=== PATIENT | female | born 1985 | race Two or more races ===

== ENCOUNTER 2025-04-25 04:17 | Emergency (ER) | payer OTHER ==
[~2025-04-25] VITALS: Ht 157.5 cm; Wt 64.4 kg
[2025-04-25] MEDS ORDERED: CEFTRIAXONE SODIUM 1,000 MG VIAL IM STA (05:34)
[2025-04-25] MEDS ORDERED: CEFTRIAXONE SODIUM 1,000 MG VIAL ONE (05:35)
[2025-04-25] MEDS ORDERED: LIDOCAINE HCL 1% 10ML VIAL ONE (05:36)
[2025-04-25] MEDS ORDERED: ORASEP SPRAY30 ML MM (05:42)
[2025-04-25] MEDS ORDERED: ZITHROMAX500 MG PO (05:42)
== END 2025-04-25 06:04 | disposition home or self-care (01) ==
LOC: ER 04:18
DX: J03.80 Acute tonsillitis due to other specified organisms (principal)